=== PATIENT | female | born 2000 | race Hispanic/Latino ===

== ENCOUNTER 2023-01-29 13:15 | Outpatient (CLI) | payer OTHER | END 2023-01-29 13:16 | disposition home or self-care (01) | LOC: CSHULT 13:15 | PROVIDERS: ATTEND Nurse Practitioner Women's Health | DX: N63.42 Unspecified lump in left breast, subareolar (principal) ==

== ENCOUNTER 2023-07-08 05:00 | Inpatient (IN) | payer OTHER, MEDICAID ==
[2023-07-09 02:59] VITALS: BMI 23.8
[2023-07-09] MEDS ORDERED: Tranexamic Acid 1,000 MG/10 ML VIAL IVP PRN (03:02)
[2023-07-09] MEDS ORDERED: HYDROcodone/Acetaminophen 5/325 mg Tablet PO PRN ×2 (03:02→19:47)
[2023-07-09] MEDS ORDERED: Diphenoxylate HCl/Atropine Tablet PO PRN (03:02)
[2023-07-09] MEDS ORDERED: Acetaminophen 500 MG TAB PO PRN (03:02)
[2023-07-09] MEDS ORDERED: hydrALAZINE 20 MG/ML VIAL SLOW IVP PRN ×2 (03:02→19:47)
[2023-07-09] MEDS ORDERED: Lidocaine 1% (PF) 30 ML VIAL SC PRN (03:02)
[2023-07-09] MEDS ORDERED: Ondansetron PF 4 MG/2 ML Vial IVP PRN ×3 (03:02→19:47)
[2023-07-09] MEDS ORDERED: Ibuprofen 800 MG TAB PO PRN (03:02)
[2023-07-09] MEDS ORDERED: Methylergonovine 0.2 MG/ML VIAL IM PRN (03:02)
[2023-07-09] MEDS ORDERED: Carboprost 250 MCG/ML AMP IM PRN (03:02)
[2023-07-09] MEDS ORDERED: Misoprostol 200 MCG TAB PR PRN (03:02)
[2023-07-09] MEDS ORDERED: Promethazine HCl 25 MG/ML VIAL IM PRN ×3 (03:02→19:47)
[2023-07-09] MEDS ORDERED: fentaNYL 50 mcg/mL 1 mL Vial SLOW IVP PRN (03:02)
[2023-07-09] MEDS ORDERED: Oxytocin 30 units/NS 500 ML 500 ML IV SCH ×3 (03:15)
[2023-07-09] MEDS: Lactated Ringer's 1,000 ML IV SCH ×2 (03:20→20:44)
[2023-07-09 03:50] LABS: Hematocrit 34.9 % (34.9-44.5); Hemoglobin 11.7 g/dL (12.0-15.5); Mean Corpuscular HGB CONC 33.5 g/dL (32.0-36.0); Mean Corpuscular Hemoglobin 28.7 pg (27.0-33.0); Mean Corpuscular Volume 85.5 fl (81.6-98.3); Mean Platelet Volume 12.3 fl (7.4-10.4); Platelet Count 219 10x3/uL (150-450); RBC Distribution Width 13.1 % (11.5-14.5); Red Blood Cell (RBC) Count 4.08 10x6/uL (3.90-5.03); White Blood Cell (WBC) Count 9.2 10x3/uL (3.5-10.5)
[2023-07-09] MEDS: Misoprostol 100 MCG TAB VAG SCH ×2 (03:57→20:27)
[2023-07-09 04:20] LABS: HBSAg Index 0.12 S/CO (0-0.99); Hep B Surf Ag - L&D Non-Reactive S/CO (NonReactive)
[2023-07-09 04:22] LABS: Syphilis Antibody Nonreactive (Nonreactive); Syphilis Antibody Index 0.02 S/CO (<1.00 Non-Reactive)
[2023-07-09] MEDS ORDERED: Bupivacaine 0.25% HCL 30 ML VIAL ONE (06:00)
[2023-07-09] MEDS ORDERED: fentaNYL/Ropivacaine Epidural 100 ML ONE (09:32)
[2023-07-09] MEDS ORDERED: Acetaminophen 325 MG TAB PO PRN (10:24)
[2023-07-09] MEDS ORDERED: diphenhydrAMINE 50 MG/ML VIAL IVP PRN (10:24)
[2023-07-09] MEDS ORDERED: ePHEDrine Sulfate 50 MG/10 ML VIAL SLOW IVP PRN (10:24)
[2023-07-09] MEDS ORDERED: Lactated Ringer's 500 ML IV PRN (10:24)
[2023-07-09] MEDS ORDERED: Naloxone HCl 0.4 mg/ml Vial IVP PRN ×2 (10:24)
[2023-07-09] MEDS ORDERED: Moisturizing Cream (Eucerin) 113 GM JAR TOP PRN (10:24)
[2023-07-09] MEDS ORDERED: fentaNYL 2 mcg/Ropivacaine 0.2% Epidural 100 ML CADD EPIDURAL SCH (10:30)
[2023-07-09] MEDS ORDERED: Communication Order-Pharmacy FS SCH (10:30)
[2023-07-09] MEDS ORDERED: Lanolin Ointment 7 GM TUBE TOP PRN (19:47)
[2023-07-09] MEDS ORDERED: Bisacodyl 10 MG SUPP PR PRN (19:47)
[2023-07-09] MEDS ORDERED: diphenhydrAMINE 25 MG CAP PO PRN (19:47)
[2023-07-09] MEDS ORDERED: Milk Of Magnesia 30 ML UDCUP PO PRN (19:47)
[2023-07-09] MEDS ORDERED: Boostrix 0.5 ML (Tdap) VIAL (>/=7 yrs of age) IM ONE (19:47)
[2023-07-09] MEDS ORDERED: Benzocaine-Menthol 82.5 ML CAN TOP PRN (19:47)
[2023-07-09] MEDS: Ibuprofen 800 MG TAB PO SCH (21:32)
[2023-07-09] MEDS: Docusate 100 MG CAP PO SCH (21:33)
[2023-07-10] MEDS: Ibuprofen 800 MG TAB PO SCH ×3 (06:06→21:35)
[2023-07-10] MEDS: Prenatal Vitamin 1 TAB PO SCH (08:37)
[2023-07-10] MEDS: Docusate 100 MG CAP PO SCH ×2 (08:37→21:35)
[2023-07-10] MEDS: Ferrous Sulfate 325 MG TAB PO SCH (19:38)
[2023-07-10 21:10] VITALS: TEMP 98.1
[2023-07-11] MEDS: Ibuprofen 800 MG TAB PO SCH (05:40)
[2023-07-11] MEDS: Ferrous Sulfate 325 MG TAB PO SCH ×2 (07:14→07:15)
[2023-07-11] MEDS: Prenatal Vitamin 1 TAB PO SCH (07:42)
[2023-07-11] MEDS: Docusate 100 MG CAP PO SCH (07:42)
[2023-07-11 07:56] VITALS: BP 109/62
== END 2023-07-11 09:58 | disposition home or self-care (01) | DRG 807 ==
LOC: CSHLD 07-09 02:07 → CSHPP 07-09 14:30
PROVIDERS: ADMIT Family Medicine; ATTEND Family Medicine
PROC: 10E0XZZ Delivery of Products of Conception, External Approach (ICD-10-PCS; principal; 2023-07-09)
PROC: 10907ZC Drainage of Amniotic Fluid, Therapeutic from Products of Conception, Via Natural or Artificial Opening (ICD-10-PCS; 2023-07-09)
PROC: 3E0P7VZ Introduction of Hormone into Female Reproductive, Via Natural or Artificial Opening (ICD-10-PCS; 2023-07-09)
DX: O36.5930 Maternal care for other known or suspected poor fetal growth, third trimester, not applicable or unspecified (principal); Z37.0 Single live birth; Z3A.37 37 weeks gestation of pregnancy; O69.81X0 Labor and delivery complicated by cord around neck, without compression, not applicable or unspecified
CPT/HCPCS: 51702; 85027; 86780; 86850; 86900; 86901; 87340; J2590; J7120; S0020